=== PATIENT | female | born 1950 | race Caucasian/White ===

== ENCOUNTER 2022-08-18 01:30 | Emergency (ER) | payer MEDICARE, OTHER, SELFPAY ==
[2022-08-18 01:33] VITALS: BP 128/64; PULSE 66; RESP 18; TEMP 36.8; O2SAT 99; BMI 42.2
--- NOTE | 2022-08-18 01:57 | RAD_ITS ---
EXAM: XR RIGHT HIP WITH PELVIS WHEN PERFORMED, 2 OR 3 VIEWS CLINICAL INDICATION: pain TECHNIQUE: Two views of the right hip, single frontal view of the pelvis. This report was created using Original report generation technology. COMPARISON: None. FINDINGS: BONES/JOINTS: Unremarkable. No displaced fracture. No destructive or sclerotic lesions. Note that overlapping bowel shadows may however obscure fine detail. Sacroiliac joint is unremarkable. No widening of the pubic symphysis. The articular structures are unremarkable. SOFT TISSUES: Unremarkable. No soft tissue swelling or gas. RAD/HIP, UNI W/ Pelvis 2-3 Views IMPRESSION: No evidence of displaced pelvic or hip fracture. Electronically Signed: Pat Young MD at 2:59 EDT ,
[2022-08-18] MEDS: Ondansetron 4 MG/2 ML Vial IV (02:22)
[2022-08-18] MEDS: dexAMETHasone 10 MG/ML Vial IV (02:22)
[2022-08-18] MEDS: Morphine 4 MG/ML Syringe IV (02:23)
[2022-08-18] MEDS: diazePAM 5 MG Tablet 2.5 MG PO (02:51)
[2022-08-18 03:41] VITALS: BP 128/64; PULSE 66; RESP 18; O2SAT 99
--- NOTE | 2022-08-18 03:41 | EDS_ITS ---
HPI History of Present Illness Chief Complaint: Lower Extremity Injury Narrative Narrative: Patient is a 71-year-old female who states that for a few months she has been had right-sided hip pain. She states she has been able to deal with the pain with just [id number] medications but that this evening the pain worsened to the point where she was having difficulty walking and [id number] medications were not helping. She states that there is been no recent excessive activity or trauma. She denies any numbness tingling or weakness. However because of the worsening pain and making it difficult for her to ambulate on her own she presents for evaluation [facility] Home Medications diazepam 5 mg tablet (Valium) 5 mg PO TID PRN muscle spasm 5 days #15 tabs 08/18/22 [Rx Last Taken Unknown] oxycodone-acetaminophen 5 mg-325 mg tablet (Endocet) 1 tab PO Q6H PRN pain 3 days #12 tabs 08/18/22 [Rx Last Taken Unknown] prednisone 20 mg tablet 20 mg PO DAILY 5 days #5 tabs 08/18/22 [Rx Last Taken Unknown] Allergy/AdvReac Type Severity Reaction Status Date / Time Tetanus Vaccines and Toxoid Allergy Hives Verified 08/18/22 01:38 Surgical History History of cholecystectomy Social History Smoking Status: Former smoker [facility] ED Constitutional Constitutional ED: Denies chills or fever(s) ENT ENT ED: Denies sore throat Cardiovascular Cardiovascular: Denies chest pain Respiratory/Chest Respiratory/Chest: Denies cough or dyspnea Gastrointestinal Gastrointestinal: Denies abdominal pain, diarrhea, nausea or vomiting Genitourinary Genitourinary ED: Denies dysuria Musculoskeletal Musculoskeletal: Reports other Details: Positive right hip pain ; Denies back pain Integumentary Denies rash Neurologic Neurologic: Denies headache(s), paresthesias or weakness Hematologic/Lymphatic Hematologic/Lymphatic: Denies easy bleeding or easy bruising EXAM Physical Exam Const Vital Signs: 08/18/22 01:33 Temperature 98.2 F Temperature Source Temporal Pulse Rate 66 Respiratory Rate 18 Blood Pressure 128/64 H Blood Pressure Mean 85 Pulse Ox 99 Oxygen Delivery Method Room Air Positive well nourished, well developed and obese General Appearance ED: well developed Nutritional Appearance: obese Eyes PERRL and EOMs intact bilaterally General Eye ED: Negative for scleral icterus Neck supple Resp normal respiratory effort and clear to auscultation bilaterally Cardio regular rate and regular rhythm Rate: other Other Details: Radial pulses are plus 2 out of 4 bilaterally are equal and symmetric Back/Spine Back/Spine Narrative: No bony deformity or step-off of the thoracic or lumbar spine no midline pain with palpation. There is pain with palpation over top the right piriformis muscle belly region. No saddle anesthesia. Negative straight leg raise. No clonus or Babinski. Patellar reflexes are plus 1 out of 4 bilaterally Extremity Extremity Narrative: There is no bony deformity or joint effusion present. There is no shortening or external rotation of either lower leg. There is no overlying erythema or warmth or abrasions or ecchymosis to suggest infection or trauma. . Patient does have pain on palpation along the right greater trochanter. This pain worsens with internal and external rotation as well as straight leg raise and hip flexion. Neuro oriented x3, CN's II-XII intact bilaterally and no sensory deficits noted Sensorium / Orientation: alert Psych mental status grossly normal Skin no rashes or lesions noted MDM MDM MDM Narrative Medical decision making narrative: Patient presented to the ER with stable vitals and reported increasing pain despite any report of injury or excessive activity. Differential includes avascular necrosis nondisplaced fracture piriformis syndrome herniated disc with nervous compression and bursitis. As patient has a normal neurologic exam for the back going against any type of neuro claudication I do not feel there is need for a CT scan. Based on the worsening pain there is concern for an avulsion fracture or avascular necrosis so an x-ray of the hip was obtained. This revealed no acute findings. The patient was medicated with Valium for muscle relaxation as well as oxycodone for pain control. Following treatment she did have improvement of pain and was able to ambulate with a steady gait. Therefore at this time as patient is able to ambulate x-ray reveals no signs of avascular necrosis or injury and physical exam goes against an infectious process or neurologic impingement she can be discharged and follow-up with orthopedics on an outpatient basis to discuss need for joint injections versus f urther testing History & Record Review Discussion w/independent historian: Patient and Family Radiography Diagnostic Testing: Clinical Impression(s) from Imaging Studies Hip/Pelvis X-Ray 08/18/22 01:57 IMPRESSION: No evidence of displaced pelvic or hip fracture. Electronically Signed: Pat Young MD at 2:59 EDT , X-ray of the right hip and pelvis as interpreted by the emergency medicine physician revealed no acute fracture or dislocation. Discharge Plan Triage Chief Complaint: Lower Extremity Injury ED Provider: Justen Schultz Dx/Rx/DC Orders Clinical Impression: Piriformis syndrome, Greater trochanteric bursitis of right hip Instructions: ED Bursitis, ED Hip Strain Prescriptions: New oxycodone-acetaminophen [Endocet] 5-325 mg tablet 1 tab PO Q6H PRN (Reason: pain) 3 Days Qty: 12 0RF prednisone 20 mg tablet 20 mg PO DAILY 5 Days Qty: 5 0RF diazepam [Valium] 5 mg tablet 5 mg PO TID PRN (Reason: muscle spasm) 5 Days Qty: 15 0RF Primary Care Provider: Care Physician,No Primary Referrals: Kenji Vásquez MD [Med Staff - Active Staff] - Care Physician,No Primary [Primary Care Provider] - Activity Restrictions/Additional Instructions: Please take the medication as directed to help control your pain. Use a cane or walker as needed to help with ambulation. Follow-up with orthopedics to discuss need for further testing or joint injections to help control your symptoms and return to the ER should you have any further concerns Disposition Disposition: Home, Self Care Discharge Date/Time: 08/18/22 05:52
[2022-08-18] MEDS: Ketorolac 15 MG/ML Vial IV (04:05)
[2022-08-18] MEDS: oxyCODONE 5 MG Tablet PO (04:05)
== END 2022-08-18 05:52 | disposition home or self-care (01) ==
PROVIDERS: Emergency Provider Emergency Medicine; Visit Provider Emergency Medicine
DX: M70.61 Trochanteric bursitis, right hip (principal); E66.9 Obesity, unspecified; Z87.891 Personal history of nicotine dependence; Z79.52 Long term (current) use of systemic steroids; G57.00 Lesion of sciatic nerve, unspecified lower limb
CPT/HCPCS: 73502; 96374; 96375; 99284; A4216; J2405

== ENCOUNTER → 2022-11-09 | Outpatient (CLI) | payer MEDICARE, OTHER, SELFPAY ==
--- NOTE | 2022-11-09 12:07 | RAD_ITS ---
EXAM: XR CHEST, 2 VIEWS CLINICAL INDICATION: PRE OP TECHNIQUE: Frontal and lateral views of the chest. COMPARISON: No relevant prior studies available. FINDINGS: LUNGS AND PLEURAL SPACES: Unremarkable. No consolidation or edema. No pneumothorax. No effusion. HEART: Unremarkable. Cardiac silhouette not enlarged. MEDIASTINUM: Central airways and mediastinal contour are unremarkable. BONES/JOINTS: Degenerative changes of the thoracic spine. SOFT TISSUES: Unremarkable. RAD/Chest PA and Lateral IMPRESSION: No acute findings in the chest. Electronically Signed: Haseeb Casiano MD at 2:07 EDT ,
[2022-11-09 12:52] LABS: Prothrombin Time (Protime)PT. 13.2 SECONDS (11.7-14.9)
[2022-11-09 12:53] LABS: Partial Thromboplast Time 29.7 Seconds (24.1-36.2)
== END | disposition home or self-care (01) ==
PROVIDERS: PCP Internal Medicine; Referring Provider Orthopaedic Surgery; Visit Provider Orthopaedic Surgery
DX: Z01.811 Encounter for preprocedural respiratory examination (principal); Z01.812 Encounter for preprocedural laboratory examination
CPT/HCPCS: 36415; 71046; 85610; 85730